=== PATIENT | female | born 1990 | race Caucasian/White ===

== ENCOUNTER 2020-06-27 09:38 | Emergency (ER) | payer BC, SELFPAY ==
[2020-06-27] MEDS ORDERED: Acetaminophen 325 MG TAB ONE (10:51)
[2020-06-27 10:52] LABS: #Eosinphils 0.1 10x3/uL (0.0-0.5); #Monocytes 0.3 10x3/uL (0.0-1.1); #Neutrophils 4.3 10x3/uL (1.5-8.4); %Basophils 0.5 % (0.0-2.0); %Eosinophils 0.8 % (0.0-6.0); %Lymphocytes 20.7 % (18.0-47.0); %Monocytes 5.2 % (0.0-10.0); %Neutrophils 72.3 % (40.0-75.0); Hemoglobin 13.5 g/dL (12.0-15.5); Mean Corpuscular HGB CONC 32.7 g/dL (32.0-36.0); Mean Corpuscular Volume 88.8 fl (81.6-98.3); Platelet Count 275 10x3/uL (150-450); RBC Distribution Width 11.9 % (11.5-14.5); Red Blood Cell (RBC) Count 4.65 10x6/uL (3.90-5.03)
[2020-06-27] MEDS ORDERED: Metoclopramide HCl 10 MG/2 ML VIAL ONE (10:52)
[2020-06-27] MEDS ORDERED: diphenhydrAMINE 50 MG/ML VIAL ONE (10:52)
[2020-06-27 11:01] LABS: BHCG - Serum Negative (NEGATIVE); Pregs Control Background? CLEAR/WHITE (CLR/WHITE); Pregs Control Bar Appear? YES (CONTROL BAR)
[2020-06-27 11:09] LABS: ALT (SGPT) 14 U/L (8-55); AST (SGOT) 17 U/L (5-34); Alkaline Phosphatase 44 U/L (40-110); Anion Gap 16 mmol/L (10-20); BUN (Urea Nitrogen) 8 mg/dL (7.0-18.7); Bilirubin, Total 0.7 mg/dL (0.2-1.2); Calc. Creatinine Clearance 0 mL/min (70-130); Calcium 9.6 mg/dL (7.8-10.44); Carbon Dioxide 25 mmol/L (22-29); Chloride 102 mmol/L (98-107); Globulin 2.9 g/dL (2.4-3.5); Glucose 97 mg/dL (70-105); Potassium 4.1 mmol/L (3.5-5.1); Protein, Total 7.9 g/dL (6.0-8.3); Sodium 139 mmol/L (136-145)
== END 2020-06-27 12:40 | disposition home or self-care (01) ==
LOC: CSHERS 09:38
DX: R11.2 Nausea with vomiting, unspecified (principal); R42 Dizziness and giddiness; R29.700 NIHSS score 0
CPT/HCPCS: 80053; 84484; 84703; 85025; 93005; 96365; 96375; J1200; J2765

== ENCOUNTER 2025-03-14 09:15 | Emergency (ER) | payer OTHER ==
[2025-03-14] MEDS ORDERED: Ketorolac Tromethamine 30 MG (1 mL) VIAL ONE (09:45)
[2025-03-14] MEDS ORDERED: Lidocaine Viscous Sol 2% 15 ml UD Cup ONE (09:45)
[2025-03-14] MEDS ORDERED: Amoxicillin/Potassium Clav 875 MG TAB ONE (11:16)
== END 2025-03-14 11:20 | disposition home or self-care (01) ==
LOC: CSHERS 09:15
DX: J06.9 Acute upper respiratory infection, unspecified (principal); H66.92 Otitis media, unspecified, left ear
CPT/HCPCS: 87081; 87428; 87430; 96372; 99284; J1885